=== PATIENT | female | born 1955 | race Caucasian/White ===

== ENCOUNTER 2023-07-11 09:30 | Outpatient (RCR) | payer MEDICARE, SELFPAY | END 2023-11-08 23:59 | disposition home or self-care (01) | PROVIDERS: PCP Physician Assistant Medical; Visit Provider Family Medicine | DX: M20.039 Swan-neck deformity of unspecified finger(s) (principal); R53.1 Weakness; Z51.89 Encounter for other specified aftercare | CPT/HCPCS: 97035; 97110; 97165; X5282 ==

== ENCOUNTER 2025-06-29 10:02 | Day surgery (SDC) | payer MEDICARE, BC, SELFPAY ==
[2025-06-29] VITALS (16 sets, daily range): BP systolic 133–178; BP diastolic 71–94; PULSE 46–58; RESP 16; TEMP 36.5–36.8; O2SAT 96–98; BMI 39.5
--- NOTE | 2025-06-29 10:30 | W.PM.H&PU ---
History & Physical Update History & Physical Update H&P Reviewed and patient assessed: No changes noted
--- NOTE | 2025-06-29 10:31 | PM.GSPRC ---
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 Wide excision squamous cell carcinoma of the right thumb 2. Full-thickness skin graft, right forearm donor Indications: The patient is a 69-year-old female with a nonhealing lesion of her right thumb which has been present for several years. He had been managed with cauterization in the past. This was biopsied in clinic and found to be squamous cell carcinoma. The margins were positive and therefore she presents for a more definitive excision. Procedure Description: After discussing the risks and benefits of the procedure, the patient signed informed consent.? The operative site was marked and the patient was brought to the operating room and placed on the operating table in supine position.? Care was taken to pad the patient's pressure points.??The operative site was then prepped and draped in the usual sterile fashion.? A time-out was then performed. First, lesion was examined. The ulcer at the middle and the surrounding skin measured 4 mm. Grossly negative margins were marked using a skin marker. The entire planned excision was 7 mm. A nerve block was performed on the right thumb, injecting 5 mL of a combination of 1% lidocaine and 0.5% Marcaine in both the web space and the radial aspect just proximal to the PIP joint. Once area was confirmed to be anesthetized, a tournicot digital tourniquet was then placed. Using a [place] blade, I incised the skin in a circular fashion down to the thumb fat pad. The subcutaneous fat appeared grossly normal. A portion of subcutaneous fat was removed with the specimen and the specimen was marked at the 12 o'clock or proximal/superior aspect with blue ink and sent to pathology. The tourniquet was removed and hemostasis was achieved with cautery. I examined the wound. The edges were too far apart to close primarily. I was able to place a single interrupted 4-0 Monocryl in the proximal and distal aspect to decrease the size of the wound. I ensured that the tissue was soft and there was good blood flow to the distal thumb to ensure no strangulation tissue. Once pathology came back as negative margins, I measured the defect. I elected to take a small piece of skin from the patient's medial forearm. This was marked out in a ellipse 5 mm wide. The area was anesthetized with local anesthetic and dissection was taken down to the subcutaneous fat. The donor skin was excised at the dermal junction and placed on saline. The skin was then closed with 4-0 Monocryl running subcuticular suture. I then examined the skin graft. There was no fat noted on the dermis. This was placed into the wound on the thumb. This fit perfectly. Five 0 chromic was then placed to secure the graft. The tails were left long to secure a Xeroform bolster. Once this was done, sterile dressings were applied to both the thumb lesion and the forearm wound. The patient tolerated the procedure well. Findings: Residual ulcer and scar from prior squamous cell carcinoma excision, frozen section with no residual tumor; margins negative Anesthesia: local Surgeon: Racquel Prabhakar MD Estimated blood loss (mL): 2 Additional Specimen Information: Right thumb squamous cell carcinoma Condition: stable Disposition: same day
--- NOTE | 2025-06-29 11:52 | SUR.PREOP ---
per Dr. Prabhakar do not do 5 min cycle of blood pressure during local monitoring for procedure. Will monitor oxygen and hr for local monitoring during procedure. Blood pressure taken at beginning and end of procedure per Dr. Prabhakar
[2025-06-29] MEDS: LIDOCAINE 1% 5 ml (pf) 5 ML VIAL INJECTION (12:32)
[2025-06-29] MEDS: BUPIVACAINE 0.25% 30 ML INJECTION (12:32)
== END 2025-06-29 13:33 | disposition home or self-care (01) ==
PROVIDERS: PCP Physician Assistant Medical; Visit Provider Surgery
PROC: (CPT 11620; principal; 2025-06-29 11:30)
DX: C44.622 Squamous cell carcinoma of skin of right upper limb, including shoulder (principal)
CPT/HCPCS: 11620; 15240; J0665